=== PATIENT | female | born 1965 ===

== ENCOUNTER 2024-10-03 09:31 | Outpatient (CLI) | payer OTHER ==
[2024-10-03 11:12] LABS: HEMATOCRIT 38.9 % (36.0-45.00); HEMOGLOBIN 13.3 g/dL (12.0-15.00); MEAN CELL VOLUME 90.6 fL (80.00-100.00); MEAN CORPUSCULAR HEMOGLOBIN 30.9 pg (27.00-32.0); MEAN CORPUSCULAR HGB CONC 34.1 g/dl (32.0-36.0); PLATELET COUNT 348 K/uL (150-450); RED CELL DISTRIBUTION WIDTH 13.9 % (11.5-14.5)
[2024-10-03 11:13] LABS: PH,URINE 5.5 (5.0-8.0); URINE APPEARANCE Clear; URINE BILIRRUBIN Negative (NEGATIVE); URINE BLOOD Negative; URINE COLOR Yellow; URINE GLUCOSE Negative (NEGATIVE); URINE KETONE Negative (NEGATIVE); URINE LEUKOCYTE Negative; URINE NITRATE Negative; URINE PROTEIN Negative (NEGATIVE); URINE UROBILINOGEN 0.2 E.U./dl
[2024-10-03 11:17] LABS: URINE BACTERIA 745.8 uL (0.0-1933); URINE EPITHELIAL CELLS 22.5 uL (0.0-38.8); URINE RBC 5.6 uL (0.0-20.8); URINE WBC 11.7 uL (0.0-23.2)
[2024-10-03 11:24] LABS: ERYTHROCYTE SEDIMENTATION RATE 26 mm/hr
[2024-10-03 12:05] LABS: ALBUMIN 3.7 gm/dL (3.4-5.0); ALKALINE PHOSPHATASE 74 U/L (50-136); ALT/SGPT 20 U/L (12-78); ANION GAP 9 (10.0-20.0); AST/SGOT 14 U/L (15-37); BILIRUBIN TOTAL 0.45 mg/dL (0.3-1.2); BLOOD UREA NITROGEN 18 mg/dL (7-18); BUN CREA RATIO 31 (7.0-25.0); CALCIUM 9.2 mg/dL (8.5-10.1); CARBON DIOXIDE 29 mEq/L (21-32); CHLORIDE 109 mmol/L (98-107); CHOL HDL RATIO 2.9 (0-5.0); CHOLESTEROL 215 mg/dL (0-200); CREATININE SERUM 0.58 mg/dL (0.55-1.02); GFR 107.15; GLOBULINA 3.3 G/DL (2.4-3.5); GLUCOSE FASTING 78 mg/dL (65-100); HDL 75 mg/dl (40-60); LDL 122 mg/dl (0-130); OSMOLALITY SERUM 286 MOSM/KG (275-295); POTASSIUM 4.06 mEq/L (3.5-5.1); SODIUM 143 mmol/L (136-145); T4 FREE 0.94 NG/ML (0.76-1.46); TRIGLYCERIDES 88 mg/dL (0-150); VLDL 17 (0-39)
[2024-10-03 12:12] LABS: C-REACTIVE PROTEIN < 0.29 MG/DL (0.00-0.29)
== END 2024-10-03 09:32 | disposition home or self-care (01) ==
LOC: LAB 09:31
DX: E78.2 Mixed hyperlipidemia (principal); I10 Essential (primary) hypertension; E11.9 Type 2 diabetes mellitus without complications; K62.5 Hemorrhage of anus and rectum; E55.9 Vitamin D deficiency, unspecified; E03.9 Hypothyroidism, unspecified; Z12.5 Encounter for screening for malignant neoplasm of prostate; Z12.11 Encounter for screening for malignant neoplasm of colon; M19.90 Unspecified osteoarthritis, unspecified site; D50.0 Iron deficiency anemia secondary to blood loss (chronic)

== ENCOUNTER → 2024-10-05 12:51 | Outpatient (CLI) | payer OTHER ==
[2024-10-05 13:43] LABS: ob NEGATIVE (NEGATIVE)
== END | disposition home or self-care (01) ==
LOC: LAB 12:51
DX: I10 Essential (primary) hypertension (principal); E78.2 Mixed hyperlipidemia; E11.9 Type 2 diabetes mellitus without complications; K62.5 Hemorrhage of anus and rectum; E55.9 Vitamin D deficiency, unspecified; E03.9 Hypothyroidism, unspecified; Z12.5 Encounter for screening for malignant neoplasm of prostate; M19.90 Unspecified osteoarthritis, unspecified site; D50.0 Iron deficiency anemia secondary to blood loss (chronic)

== ENCOUNTER 2024-10-15 07:54 | Outpatient (CLI) | payer OTHER | END 2024-10-15 08:04 | disposition home or self-care (01) | LOC: MAMO-SONO 07:54 | DX: N64.4 Mastodynia (principal); Z12.31 Encounter for screening mammogram for malignant neoplasm of breast ==

== ENCOUNTER 2025-04-09 07:24 | Outpatient (CLI) | payer OTHER ==
[2025-04-09 08:03] LABS: BASO % 0.9 % (0.1-1.2); EOS # 0.23 (0.04-0.54); EOS % 5.2 % (0.7-7.0); HEMATOCRIT 37.9 % (34.1-44.9); HEMOGLOBIN 12.5 g/dL (11.2-15.7); LYMPH # 2.06 (1.18-3.74); LYMPH % 46.6 % (19.3-53.1); MEAN CORPUSCULAR HEMOGLOBIN 29.9 pg (25.6-32.2); MONO # 0.39 (0.24-0.82); MONO % 8.8 % (4.7-12.5); NEUT # 1.69 (1.56-6.13); NEUT % 38.3 % (34.0-71.1); PLATELET COUNT 366 K/uL (163-369); RED BLOOD COUNT 4.18 M/uL (3.93-5.22)
[2025-04-09 08:45] LABS: ALBUMIN 3.5 gm/dL (3.4-5.0); BILIRUBIN TOTAL 0.39 mg/dL (0.3-1.2); CALCIUM 8.8 mg/dL (8.5-10.1); CHOL HDL RATIO 2.5 (0-5.0); CREATININE SERUM 0.55 mg/dL (0.55-1.02); GFR 113.52; GLOBULINA 3.2 G/DL (2.4-3.5); POTASSIUM 3.84 mEq/L (3.5-5.1); T4 FREE 0.98 NG/ML (0.76-1.46); TOTAL PROTEIN 6.7 gm/dL (6.4-8.2); TSH 2.31 uIU/mL (0.358-3.74)
== END 2025-04-09 07:26 | disposition home or self-care (01) ==
LOC: LAB 07:24
DX: I11.0 Hypertensive heart disease with heart failure (principal); E78.2 Mixed hyperlipidemia; E11.9 Type 2 diabetes mellitus without complications; E03.9 Hypothyroidism, unspecified; E55.9 Vitamin D deficiency, unspecified; Z12.11 Encounter for screening for malignant neoplasm of colon; M06.4 Inflammatory polyarthropathy

== ENCOUNTER 2025-10-04 07:36 | Outpatient (CLI) | payer OTHER ==
[2025-10-04 08:52] LABS: BASO % 0.9 % (0.1-1.2); EOS # 0.15 (0.04-0.54); EOS % 3.5 % (0.7-7.0); LYMPH # 2.02 (1.18-3.74); LYMPH % 46.9 % (19.3-53.1); MEAN PLATELET VOLUME 8.80 fl (9.4-12.4); MONO # 0.39 (0.24-0.82); MONO % 9.0 % (4.7-12.5); NEUT # 1.70 (1.56-6.13); NEUT % 39.5 % (34.0-71.1); RED CELL DISTRIBUTION WIDTH 12.8 % (11.6-14.4)
[2025-10-04 10:21] LABS: ALT/SGPT 17.0 U/L (12-78); AST/SGOT 13.0 U/L (15-37); BILIRUBIN TOTAL 0.51 mg/dL (0.3-1.2); BUN CREA RATIO 28.0 (7.0-25.0); CHOL HDL RATIO 2.7 (0-5.0); CREATININE SERUM 0.58 mg/dL (0.55-1.02); GFR 106.77; GLOBULINA 3.5 G/DL (2.4-3.5); GLUCOSE FASTING 80.0 mg/dL (65-100); HDL 73.0 mg/dl (40-60); LDL 110.0 mg/dl (0-130); OSMOLALITY SERUM 289.0 MOSM/KG (275-295); T4 FREE 1.08 NG/ML (0.76-1.46); TSH 1.52 uIU/mL (0.358-3.74); VLDL 14.0 (0-39)
== END 2025-10-04 07:40 | disposition home or self-care (01) ==
LOC: LAB 07:36
DX: I10 Essential (primary) hypertension (principal); E03.9 Hypothyroidism, unspecified; E11.65 Type 2 diabetes mellitus with hyperglycemia; E78.2 Mixed hyperlipidemia